=== PATIENT | male | born 1950 | race Two or more races ===

== ENCOUNTER 2024-03-20 06:12 | Day surgery (SDC) | payer OTHER ==
[2024-03-20] MEDS ORDERED: FLUMAZENIL 0.5 MG/5 ML ML IV STA (08:16)
[2024-03-20] MEDS ORDERED: fentaNYL CITRATE 50 MCG/ML AMPUL IV PUSH ONE (08:30)
[2024-03-20] MEDS ORDERED: MIDAZOLAM HCL 2 MG/2 ML VIAL IV ONE (08:30)
[2024-03-20] MEDS ORDERED: DIPHENHYDRAMINE HCL 50 MG/ML VIAL 1ML IV ONE (08:30)
== END 2024-03-20 09:50 | disposition home or self-care (01) ==
LOC: AMB-ENDOS 06:12
PROVIDERS: ATTEND Colon & Rectal Surgery
DX: D12.5 Benign neoplasm of sigmoid colon (principal); K57.30 Diverticulosis of large intestine without perforation or abscess without bleeding; K62.5 Hemorrhage of anus and rectum; K62.4 Stenosis of anus and rectum; Z88.2 Allergy status to sulfonamides